=== PATIENT | female | born 2000 | race American Indian/Alaskan Native ===

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

== ENCOUNTER 2021-02-24 12:52 | Emergency (ER) | payer BC ==
[2021-02-24 13:18] VITALS: BP 125/77
[2021-02-24] MEDS ORDERED: AMOXICILLIN 500 MG CAP PO ONE (13:21)
[2021-02-24] MEDS ORDERED: ACETAMINOPHEN 500 MG TAB PO ONE (13:21)
--- NOTE | 2021-02-24 13:21 | Emergency Department Report ---
ED Peds HEENT HPI - General Chief Complaint: Earache Stated Complaint: EAR PAIN Time Seen by Provider: 02/24/21 13:20 Source: patient Mode of arrival: Ambulatory Limitations: No Limitations - History of Present Illness Severity scale (0 -10): 9 - Related Data Previous Rx's Medication Instructions Recorded Last Taken Type Acetaminophen [Acetaminophen 8 650 mg PO Q8H PRN #25 tablet.er 02/24/21 Unknown Rx Hour] Amoxicillin [Trimox CAP] 500 mg PO BID #20 capsule 02/24/21 Unknown Rx Allergies Allergy/AdvReac Type Severity Reaction Status Date / Time adhesive tape AdvReac Rash Verified 02/24/21 13:13 ED Review of Systems ROS: Stated complaint: EAR PAIN Other details as noted in HPI Comment: All other systems reviewed and negative Pediatric Past Medical History - Chronic Health Problems Hx Asthma: No Hx Diabetes: No Hx HIV: No Hx Renal Disease: No Hx Sickle Cell Disease: No Hx Seizures: No ED Peds HEENT EXAM - General General appearance: alert Limitations: No Limitations - Eye Eye Exam: Normal Apperance, PERRL - ENT ENT exam: Positive: normal orophraynx, mucous membranes moist Ear Exam: TM Dull: Right, TM Erythemetous: Right, Loss of Light Reflex: Right - Respiratory Respiratory exam: Positive: normal lung sounds bilaterally - Cardiovascular Cardiovascular Exam: Positive: regular rate - GI/Abdominal GI/Abdominal exam: Positive: soft - Extremities Extremities exam: Positive: normal inspection - Back Back exam: normal inspection - Neurological Neurological Exam: Positive: Alert - Skin Skin exam: Positive: warm, dry ED Course Vital Signs 02/24/21 13:17 Temperature 97.5 F L Pulse Rate 72 Respiratory 20 Rate Blood Pressure 125/77 [Right] O2 Sat by Pulse 99 Oximetry ED Medical Decision Making - Medical Decision Making right ear TM red medicated with tylenol and amox in ER dc home with dc plan of care including diet, med, activity and follow up Vital Signs 02/24/21 13:17 Temperature 97.5 F L Pulse Rate 72 Respiratory 20 Rate Blood Pressure 125/77 [Right] O2 Sat by Pulse 99 Oximetry Family and pt verbalize understanding of plan of care - Differential Diagnosis right om Critical care attestation.: If time is entered above; I have spent that time in minutes in the direct care of this critically ill patient, excluding procedure time. ED Disposition Clinical Impression: Otitis media Qualifiers: Otitis media type: unspecified Chronicity: acute Qualified Code(s): H66.90 - Otitis media, unspecified, unspecified ear Disposition: HOME / SELF CARE / HOMELESS Is pt being admited?: No Does the pt Need Aspirin: No Condition: Stable Instructions: Otitis Media, Adult, [id number] Additional Instructions: meds as ordered until gone motrin over the counter for pain can be added to other meds stay well hydrated with water follow up with pcp next week for recheck referral below Prescriptions: Acetaminophen [Acetaminophen 8 Hour] 650 mg PO Q8H PRN #25 tablet.er PRN Reason: Pain , Severe (7-10) Amoxicillin [Trimox CAP] 500 mg PO BID #20 capsule Referrals: URIEL MONSON MD [Staff Physician] - 3-5 Days Time of Disposition: 13:21
== END 2021-02-24 14:28 | disposition home or self-care (01) ==
LOC: ED 12:52
DX: H66.91 Otitis media, unspecified, right ear (principal)
CPT/HCPCS: 99282